=== PATIENT | male | born 1955 | race Caucasian/White ===

== ENCOUNTER 2021-01-02 17:30 | Outpatient (CLI) | payer MEDICARE | END 2021-01-02 17:31 | disposition home or self-care (01) | LOC: SLEEPLAB 17:30 | PROVIDERS: ATTEND Internal Medicine | DX: G47.33 Obstructive sleep apnea (adult) (pediatric) (principal); E11.9 Type 2 diabetes mellitus without complications; R06.83 Snoring; G47.00 Insomnia, unspecified | CPT/HCPCS: 95806 ==

== ENCOUNTER 2021-02-17 19:00 | Outpatient (CLI) | payer MEDICARE | END 2021-02-17 19:01 | disposition home or self-care (01) | LOC: SLEEPLAB 19:00 | PROVIDERS: ATTEND Internal Medicine | DX: G47.33 Obstructive sleep apnea (adult) (pediatric) (principal); E11.9 Type 2 diabetes mellitus without complications | CPT/HCPCS: 95811 ==

== ENCOUNTER 2021-02-23 10:41 | Inpatient (IN) | payer MEDICARE ==
[2021-02-27 10:27] VITALS: BMI 41.3
[2021-02-28] MEDS ORDERED: Acetaminophen 500 MG TAB ONE (07:49)
[2021-02-28] MEDS ORDERED: cefOXitin Sodium/Dextrose 2 GM/50 ML BAG ONE (07:49)
[2021-02-28] MEDS ORDERED: Ketorolac Tromethamine 30 MG/ML VIAL ONE (07:49)
[2021-02-28] MEDS ORDERED: Midazolam HCl 2 mg/2 ml Vial ONE (08:06)
[2021-02-28] MEDS ORDERED: Fentanyl 100 MCG/2 ML VIAL ONE ×2 (08:06→08:52)
[2021-02-28] MEDS ORDERED: Lidocaine 1% w/Epinephrine 1:100K 30 ML VIAL ONE (08:46)
[2021-02-28] MEDS ORDERED: Famotidine/PF 20 mg/2ml Vial ONE (08:53)
[2021-02-28] MEDS ORDERED: SUGAMMADEX SODIUM 200 MG/2 ML VIAL ONE (08:53)
[2021-02-28] MEDS ORDERED: Bupivacaine HCl 0.5%/Epinephrine 1:200,000/PF 30 ml Vial ONE (09:11)
[2021-02-28] MEDS ORDERED: Ondansetron PF 4 MG/2 ML Vial ONE ×2 (09:11)
[2021-02-28] MEDS ORDERED: PROPOFOL 200 MG/20 ML VIAL ONE (09:11)
[2021-02-28] MEDS ORDERED: Rocuronium Bromide 10 MG/ML (10ML VIAL) ONE (09:11)
[2021-02-28] MEDS ORDERED: ePHEDrine 50 MG/ML VIAL ONE (09:11)
[2021-02-28] MEDS ORDERED: Lidocaine 1% PF 5 ML VIAL ONE (09:11)
[2021-02-28] MEDS ORDERED: Phenylephrine 10 MG/ML VIAL ONE (09:11)
[2021-02-28] MEDS ORDERED: Promethazine HCl 25 MG/ML VIAL IVPB PRN (11:04)
[2021-02-28] MEDS ORDERED: Ondansetron HCl/PF 4 MG/2 ML Vial IVP PRN (11:04)
[2021-02-28] MEDS ORDERED: Promethazine HCl 25 MG/ML VIAL IM PRN ×2 (11:04→11:54)
[2021-02-28] MEDS ORDERED: Ondansetron PF 4 MG/2 ML Vial IVP PRN (11:54)
[2021-02-28] MEDS ORDERED: Insulin Regular 300 UNITS/3 ML VIAL SC PRN (11:54)
[2021-02-28] MEDS ORDERED: hydrALAZINE 20 MG/ML VIAL SLOW IVP PRN (11:54)
[2021-02-28] MEDS ORDERED: Morphine 4 MG/ML VIAL SLOW IVP PRN ×2 (11:54→12:13)
[2021-02-28] MEDS: Ketorolac Tromethamine 30 MG/ML VIAL IVP SCH ×3 (12:00→23:10)
[2021-02-28] MEDS: Sodium Chloride 0.9% 1,000 ML IV SCH ×2 (15:31→20:53)
[2021-02-28] MEDS: Enoxaparin Sodium 40 MG/0.4 ML SYRINGE SC SCH (20:52)
[2021-02-28] MEDS: Famotidine 20 MG TAB PO SCH (20:52)
[2021-02-28] MEDS: metFORMIN 500 MG TAB PO SCH (20:52)
[2021-02-28] MEDS: Famotidine/PF 20 mg/2ml Vial SLOW IVP SCH (20:54)
[2021-03-01 05:32] LABS: #Monocytes 0.7 thou/uL (0.11-0.59); #Neutrophils 5.3 thou/uL (1.40-6.50); %Basophils 0.2 % (0.0-1.0); %Eosinophils 0.6 % (0.0-10.0); %Lymphocytes 14.3 % (21.0-51.0); %Monocytes 10.3 % (0.0-10.0); %Neutrophils 74.6 % (42.0-75.0); Hemoglobin 12.6 g/dL (14.0-18.0); Mean Corpuscular HGB CONC 33.1 g/dL (32.0-36.0); Mean Platelet Volume 8.3 fL (7.4-10.4); Platelet Count 173 thou/uL (130-400); RBC Distribution Width 11.3 % (11.5-14.5); Red Blood Cell (RBC) Count 3.71 mill/uL (4.70-6.10); White Blood Cell (WBC) Count 7.1 thou/uL (4.8-10.8)
[2021-03-01 05:49] LABS: Anion Gap 6 mmol/L (10-20); BUN (Urea Nitrogen) 7 mg/dL (8.4-25.7); Calc. Creatinine Clearance 210 mL/min (70-130); Carbon Dioxide 27 mmol/L (23-31); Chloride 110 mmol/L (98-107); Glucose 126 mg/dL (80-115); Potassium 3.7 mmol/L (3.5-5.1); Sodium 139 mmol/L (136-145)
[2021-03-01] MEDS: Sodium Chloride 0.9% 1,000 ML IV SCH ×3 (05:51→23:14)
[2021-03-01] MEDS: Ketorolac Tromethamine 30 MG/ML VIAL IVP SCH ×4 (05:51→23:13)
[2021-03-01] MEDS: metFORMIN 500 MG TAB PO SCH ×2 (08:39→20:05)
[2021-03-01] MEDS: Famotidine 20 MG TAB PO SCH ×2 (08:39→20:05)
[2021-03-01] MEDS: Atorvastatin Calcium 10 MG TAB PO SCH (08:40)
[2021-03-01] MEDS ORDERED: HYDROcodone/Acetaminophen 7.5/325 mg Tablet PO PRN (11:38)
[2021-03-01] MEDS ORDERED: Acetaminophen 325 MG TAB PO PRN (11:38)
[2021-03-01] MEDS: Famotidine/PF 20 mg/2ml Vial SLOW IVP SCH (12:08)
[2021-03-01] MEDS: Enoxaparin Sodium 40 MG/0.4 ML SYRINGE SC SCH (20:04)
[2021-03-01] MEDS: HYDROcodone/Acetaminophen 7.5/325 mg Tablet PO PRN (20:05)
[2021-03-01] MEDS ORDERED: Ketorolac Tromethamine 30 MG/ML VIAL ONE (22:44)
[2021-03-02] MEDS: Ketorolac Tromethamine 30 MG/ML VIAL IVP SCH ×2 (05:22→12:13)
[2021-03-02] MEDS: metFORMIN 500 MG TAB PO SCH (08:44)
[2021-03-02] MEDS: Famotidine 20 MG TAB PO SCH (08:44)
[2021-03-02] MEDS: Atorvastatin Calcium 10 MG TAB PO SCH (08:44)
[2021-03-02] MEDS: HYDROcodone/Acetaminophen 7.5/325 mg Tablet PO PRN (08:49)
[2021-03-02 11:30] VITALS: BP 157/83; TEMP 97.6
== END 2021-03-02 15:18 | disposition home or self-care (01) | DRG 330 ==
LOC: SURG A 02-28 06:58
PROVIDERS: ADMIT Specialist; ATTEND Specialist
PROC: 0DTF0ZZ Resection of Right Large Intestine, Open Approach (ICD-10-PCS; principal; 2021-02-28)
DX: K63.89 Other specified diseases of intestine (principal); Z68.41 Body mass index [BMI] 40.0-44.9, adult; Z88.5 Allergy status to narcotic agent; F41.9 Anxiety disorder, unspecified; E11.9 Type 2 diabetes mellitus without complications; E66.01 Morbid (severe) obesity due to excess calories; Z87.891 Personal history of nicotine dependence
CPT/HCPCS: 36415; 36416; 80048; 85025; 88307; A4649; J0694; J1650; J1885; J2250; J2370; J2405; J2704; J3010; J3490; J7050; S0028

== ENCOUNTER 2021-02-23 11:11 | Outpatient (CLI) | payer MEDICARE ==
[2021-02-23 12:56] LABS: #Eosinphils 0.1 10x3/uL (0.0-0.5); #Monocytes 0.5 10x3/uL (0.0-1.1); #Neutrophils 5.2 10x3/uL (1.5-8.4); %Basophils 0.4 % (0.0-2.0); %Eosinophils 1.8 % (0.0-6.0); %Lymphocytes 17.7 % (18.0-47.0); %Monocytes 6.3 % (0.0-10.0); %Neutrophils 73.5 % (40.0-75.0); Hemoglobin 14.1 g/dL (13.5-17.5); Mean Corpuscular HGB CONC 32.5 g/dL (32.0-36.0); Mean Corpuscular Hemoglobin 31.9 pg (27.0-33.0); Mean Corpuscular Volume 98.2 fl (81.2-95.1); Mean Platelet Volume 11.4 fl (7.4-10.4); Platelet Count 230 10x3/uL (150-450); RBC Distribution Width 12.3 % (11.5-14.5); Red Blood Cell (RBC) Count 4.42 10x6/uL (4.32-5.72); White Blood Cell (WBC) Count 7.1 10x3/uL (3.5-10.5)
[2021-02-23 13:09] LABS: Anion Gap 14 mmol/L (10-20); BUN (Urea Nitrogen) 12 mg/dL (8.4-25.7); Calc. Creatinine Clearance 0 mL/min (70-130); Calcium 8.6 mg/dL (7.8-10.44); Carbon Dioxide 24 mmol/L (23-31); Chloride 106 mmol/L (98-107); Glucose 209 mg/dL (80-115); Potassium 4.2 mmol/L (3.5-5.1); Sodium 140 mmol/L (136-145)
[2021-02-23 18:25] LABS: Hemoglobin A1c 7.4 % (4.0-6.0)
[2021-02-24 11:22] LABS: SARS-CoV-2 PCR by NAA Not Detected (NotDetected)
== END 2021-02-23 11:12 | disposition home or self-care (01) ==
LOC: LABBT 11:11
PROVIDERS: ATTEND Specialist
DX: Z01.818 Encounter for other preprocedural examination (principal); Z20.822 Contact with and (suspected) exposure to COVID-19
CPT/HCPCS: 71046; 80048; 83036; 85025; U0003; U0005; 93005; 93010

== ENCOUNTER 2021-07-31 14:39 | Outpatient (CLI) | payer MEDICARE | END 2021-07-31 14:40 | disposition home or self-care (01) | LOC: ULT 14:39 | PROVIDERS: ATTEND Family Medicine | DX: R09.89 Other specified symptoms and signs involving the circulatory and respiratory systems (principal); E78.00 Pure hypercholesterolemia, unspecified; L53.9 Erythematous condition, unspecified | CPT/HCPCS: 93923 ==

== ENCOUNTER 2022-03-06 07:33 | Outpatient (CLI) | payer OTHER | END 2022-03-06 07:34 | disposition home or self-care (01) | LOC: NM 07:33 | PROVIDERS: ATTEND Student in an Organized Health Care Education/Training Program | DX: R07.9 Chest pain, unspecified (principal); I20.8 Other forms of angina pectoris | CPT/HCPCS: 78452; 93017; A9500; J0153 ==